=== PATIENT | male | born 1945 | race Caucasian/White ===

== ENCOUNTER 2016-02-23 08:57 | Emergency (ER) | payer BC ==
[2016-02-23 09:10] VITALS: RESP 16
--- NOTE | 2016-02-23 10:06 | DX ---
PA and Lateral Chest February 23, 2016 History: Cough. Comparison: None available. Findings: The lungs are hyperexpanded with an indistinct nodular opacity on the PA view just inferior to the right 3rd rib. There is no pneumothorax or pleural effusion. The heart and pulmonary vasculat ure are normal. Degenerative change is present in the spine with dextroscoliosis of the lower thoraci c spine. Impression: Possible right lung nodule. CT chest is recommended for further evaluation. Findings discussed with Miguel Irene today at 1000 hours.
[2016-02-23] MEDS ORDERED: IOPAMIDOL (ISOVUE 370) 100 ML BTL IV ONE (10:12)
[2016-02-23 10:22] LABS: % IMMATURE GRANULYOCYTES 0.3 % (0.0-1.1); ABSOLUTE IMMATURE GRANULOCYTES 0.02 10^3/uL (0.00-0.10); ADD DIFF? NO; ADD MORPH? NO; ADD SCAN? NO; ATYPICAL LYMPHOCYTE FLAG 30 (0-99); FRAGMENT RBC FLAG 0 (0-99); HEMATOCRIT 46.6 % (40.0-51.0); LEFT SHIFT FLG 0 (0-99); LIPEMIA HEMOLYSIS FLAG 90 (0-99); MEAN CELL HEMOGLOBIN 29.4 pg (27.9-34.1); MEAN CELL HEMOGLOBIN CONCENTR. 34.3 g/dL (32.4-36.7); MEAN CELL VOLUME 85.7 fL (81.5-99.8); MEAN PLATELET VOLUME 10.5 fL (8.7-11.7); PLATELET CLUMPS FLAG 0 (0-99); PLATELET COUNT 245 10^3/uL (150-400); RED BLOOD CELL COUNT 5.44 10^6/uL (4.40-6.38); RED CELL DISTRIBUTION WIDTH 13.9 % (11.5-15.2)
[2016-02-23 10:39] LABS: ANION GAP 11 mEq/L (8-16); CALCIUM 9.3 mg/dL (8.5-10.4); CARBON DIOXIDE 25 mEq/l (22-31); CHLORIDE 103 mEq/L (97-110); CREATININE 0.9 mg/dL (0.7-1.3); GLOMERULAR FILTRATION RATE > 60; GLUCOSE 103 mg/dL (70-100); POTASSIUM 4.4 mEq/L (3.5-5.2); SODIUM 139 mEq/L (134-144)
--- NOTE | 2016-02-23 11:30 | CT ---
CT Pulmonary Angiogram Clinical Indications: Hypoxia and cough. Comparison: chest x-ray February 23, 2016, Chest CT December 12, 2009. Technique: Thinly collimated multidetector helical CT imaging was performed through the chest while 90 mL Isovue-370 were injected intravenously without complication. The images were then transferred to an independent workstation where multiplanar and three-dimensional reconstructions were performed by the interpreting physician and reviewed at multiple windows. Dose reduction techniques were utiliz ed. Findings: Chest: In the right middle lobe is a relatively low dense nodule with Hounsfield units varying betwe en -5 and 20 Hounsfield units. It measures 9 x 15 mm on series 3 image 95 with an adjacent area of at electatic change next to it. I do not see a bronchi heading into this area. Heart size is normal and there is no pericardial effusion. No adenopathy and no pulmonary masses are found. The thyroid gl and remains enlarged and heterogeneous. CT Pulmonary Angiogram: No intraluminal filling defects are seen in the pulmonary arterial system to suggest pulmonary embolus. The thoracic aorta has a normal contour without evidence of aneurysm or dissection. Impression: 1. No pulmonary emboli. 2. Indeterminate 9 x 15 mm nodule with adjacent area of atelectatic or consolidative change. This is slightly unusual as it is relatively low intensity. A small rounded pneumonia, hamartoma, versus necr otic nodule is the differential. The patient has a history of melanoma, but no history of metastasis. Options for further evaluation would be a short interval follow up in 2 months after treating the pa tient for suspected pneumonia versus PET-CT. Critical results discussed by Dr. Barcenas with Dr. Miguel Irene on February 23, 2016 at 11:27 a.m.
[2016-02-23] MEDS ORDERED: AZITHROMYCIN 250 MG TAB PO ONE (11:46)
--- NOTE | 2016-02-23 11:55 | UCPHY ---
H & P Patient Type: Established Chief Complaint Nursing Narrative: C/o SOB with exertion and nonproductive cough x 4 days. Denies fever. Time Seen by Provider: 02/23/16 09:28 HPI/ROS: This patient reports a cough associated with some dyspnea with exertion over the past 4 days. He reports a dry hacking cough and a feeling of bronchial tightness. He was exposed to friend 3 weeks ago on a stray who had a coughing illness and reports also does housemate his currently ill with a cough as well. He notes no exacerbating or alleviating factors for symptoms other than some wheezing with exertion. ROS: Constitutional: No high fevers or chills. No myalgias. HEENT: No significant nasal congestion. No ear pain or other complaints neuro: No focal symptoms pulmonary: No pleuritic pain. No respiratory distress. Cardiovascular : No heart palpitations or lightheadedness. No lower extremity swelling or calf pain. GI: No symptoms integumentary: No diaphoresis. 10 point ROS is otherwise negative. Source: Patient Exam Limitations: No limitations - Personal History Current Tetanus Diphtheria and Acellular Pertussis (TDAP): Yes Tetanus Vaccine Date: within 10 years - Medical/Surgical History PMH: Melanoma to his back with local excision and negative regional lymph nodes. He is followed once a year by Dr. Yesi Ramirez Asthma: No Hx Chronic Respiratory Disease: No Hx Diabetes: No Hx Cardiac Disease: No Hx Renal Disease: No Hx Cirrhosis: No Hx Alcoholism: No Hx HIV/AIDS: No Hx Splenectomy or Spleen Trauma: No Other PMH: hyperlipidemia, ventral hernia surgery, melanoma - Family History Significant Family History: No pertinent family hx - Social History Smoking Status: Never smoked Alcohol Use: Occasionally Drug Use: None Additional Social History: Patient return from [facility] on February 04 - Physical Exam Exam: General Appearance: Alert, no distress. Eyes: Pupils equal and round no pallor or injection. ENT, Mouth: Mucous membranes moist. Respiratory: I appreciate no rales. Has an occasional cough appreciate no significant rhonchi or wheezing on exam. Cardiovascular: Regular rate and rhythm. No murmur gallop or rub. No JVD. No peripheral edema. No calf swelling or tenderness. Gastrointestinal: Abdomen is soft and nontender, no masses, bowel sounds normal. Neurological: Alert with no focal deficits. Skin: Warm and dry, no rashes. Is clean dry intact scar from melanoma excision over the mid thoracic back. Musculoskeletal: Neck is supple nontender. Extremities are symmetrical, full range of motion. Psychiatric: Mood and affect are normal DIFFERENTIAL DIAGNOSIS: After history and physical exam differential diagnosis was considered for pneumonia, bronchitis, pulmonary lesion, PE Constitutional: Initial Vital Signs Temperature (C) 36.9 C 02/23/16 09:08 Heart Rate 92 02/23/16 09:08 Respiratory Rate 16 02/23/16 09:08 Blood Pressure 133/83 H 02/23/16 09:08 O2 Sat (%) 92 02/23/16 09:08 O2 Delivery Mode Room Air Allergies/Adverse Reactions: No Known Allergies Allergy (Verified 02/23/16 09:08) Home Medications: Medication Instructions Recorded Albuterol Hfa Anes Only [Proair 2 puffs IH Q4 PRN #1 mdi 02/23/16 Hfa Icu (*)] Androgel 02/23/16 Azithromycin [Zithromax] 250 mg PO DAILY #6 tab 02/23/16 Lipitor 02/23/16 Medical Decision Making - Diagnostics Imaging: Chest x-ray: Right upper lung field lesion versus infiltrate just inferior to the 5th rib by my interpretation, confirmed by a conversation with our radiologist-Dr. Nails who was read the x-ray CT angio chest: The area is also noted on CT angio chest with adjacent consolidation versus atelectasis. Dr. rincon-radiologist feels that the Hounsfield units of the actual lesion or most consistent with infiltrate or atelectasis but he recommends a follow-up plain chest CT for recheck in 2 months. ED Course/Re-evaluation: I counseled the patient regarding his findings. I also spoke with Dr. Gillespie-pulmonology and with Dr. Key his oncologist. Discussion: Patient with a long abnormality, cough and wheeze that I will treat empirically as a mild bronchopneumonia with albuterol and Zithromax. If his symptoms are not improving he will follow up with a lurer for further evaluation. If he does improve he will follow up with his primary care physician for a CT chest to rule out lesion. - Data Points Laboratory Results: Laboratory Results 02/23/16 10:10 02/23/16 10:10 02/23/16 10:10 WBC 7.40 10^3/uL (3.80-9.50) RBC 5.44 10^6/uL (4.40-6.38) Hgb 16.0 g/dL (13.7-17.5) Hct 46.6 % (40.0-51.0) MCV 85.7 fL (81.5-99.8) MCH 29.4 pg (27.9-34.1) MCHC 34.3 g/dL (32.4-36.7) RDW 13.9 % (11.5-15.2) Plt Count 245 10^3/uL (150-400) MPV 10.5 fL (8.7-11.7) Neut % (Auto) 71.0 % (39.3-74.2) Lymph % (Auto) 17.0 % (15.0-45.0) Floyd % (Auto) 9.3 % (4.5-13.0) Eos % (Auto) 1.9 % (0.6-7.6) Baso % (Auto) 0.5 % (0.3-1.7) Nucleat RBC Rel Count 0.0 % (0.0-0.2) Absolute Neuts (auto) 5.25 10^3/uL (1.70-6.50) Absolute Lymphs (auto) 1.26 10^3/uL (1.00-3.00) Absolute Monos (auto) 0.69 10^3/uL (0.30-0.80) Absolute Eos (auto) 0.14 10^3/uL (0.03-0.40) Absolute Basos (auto) 0.04 10^3/uL (0.02-0.10) Absolute Nucleated RBC 0.00 10^3/uL (0-0.01) Immature Gran % 0.3 % (0.0-1.1) Immature Gran # 0.02 10^3/uL (0.00-0.10) Sodium 139 mEq/L (134-144) Potassium 4.4 mEq/L (3.5-5.2) Chloride 103 mEq/L (97-110) Carbon Dioxide 25 mEq/l (22-31) Anion Gap 11 mEq/L (8-16) BUN 16 mg/dL (7-23) Creatinine 0.9 mg/dL (0.7-1.3) Estimated GFR > 60 Glucose 103 H mg/dL (70-100) Calcium 9.3 mg/dL (8.5-10.4) Medications Given: Discontinued Medications Azithromycin (Zithromax) 500 mg PO EDNOW ONE PRN Reason: Protocol Stop: 02/23/16 11:47 Last Admin: 02/23/16 11:53 Dose: 500 mg Departure - Departure Disposition: Home, Routine, Self-Care Clinical Impression: Cough, Lung abnormality Condition: Good Instructions: Pneumonia (ED) Additional Instructions: Diagnosis: 1. Cough 2. Lung abnormality Discussion: A your imaging studies reveal a right upper lung field lesion that may be a small pneumonia. However this warrants follow-up to ensure that has resolved with treatment. Plan: Albuterol inhaler for cough, wheeze or shortness of breath Zithromax antibiotic If your symptoms are not improving and resolving with treatment plan over the next month, then call Dr. Gillespie-lurer for further evaluation. You should have a repeat imaging study-CT scan of your chest in 2 months. Contact your primary MD to arrange this. May also want to follow up with Dr. Key-your oncologist to see if he wants to do a PET scan or other imaging given your history of localized melanoma. Go to the emergency department for any significant worsening of her symptoms despite the treatment plan. Referrals: Axel Merritt MD [Primary Care Provider] - As per Instructions John Gillespie MD [Medical Doctor] - As per Instructions Prescriptions: Albuterol Hfa Anes Only [Proair Hfa Icu (*)] 2 puffs IH Q4 PRN #1 mdi PRN Reason: Wheezing Azithromycin [Zithromax] 250 mg PO DAILY #6 tab - PQRS PQRS Measurement: 134: Depression screening and followup, PRIME MD-PHQ2 (12 years and older) Over the last 2 weeks, how often have you been bothered by any of the following problems? 1. Feeling down, depressed, or hopeless? 2. Little interest or pleasure in doing things? [Patient answered no to both 1 and 2] [Patient answered yes to at least 1, referred to PCP for further evaluation.] [Not done because] [altered mental status] [patient refused] [critically ill]. 130: Documentation of medications. [Reviewed all patient medications, doses, route and frequency.] [Unable to obtain meds due to] [critical illness] [altered mental status] [ patient did not know]. 226: Do you smoke? [Yes, counseled to stop.] [No.] 47: 65 and older: Advanced care planning. Patient designates surrogate decision maker as [parent] [spouse] [ ]. [Patient refused.] [Patient has advanced directive.] 51: 18 years old and older with diagnosis of COPD, spirometry performance. [Spirometry not performed; equipment not available.] [Patient has no history of COPD] 52: 18 years old and older with COPD and symptoms of COPD or FEV1<60% predicted prescribed a B Agonist. [Spirometry not performed; equipment not available.]
[2016-02-23 11:58] VITALS: BP 107/68; PULSE 76; TEMP 97.9; O2SAT 95
== END 2016-02-23 12:05 | disposition home or self-care (01) ==
LOC: CED 08:57
DX: R05 Cough (principal); R91.8 Other nonspecific abnormal finding of lung field
CPT/HCPCS: 71020-PO; 71275-PO; 80048-PO; 85025-PO; G0463-PO; Q9967

== ENCOUNTER 2016-04-06 18:00 | Emergency (ER) | payer BC ==
--- NOTE | 2016-04-06 18:04 | UCPHY ---
H & P Patient Type: Established HPI/ROS: HPI CHIEF COMPLAINT: Cough, shortness of breath, low oxygen level HISTORY OF PRESENT ILLNESS: This patient very pleasant 71-year-old male, denies having any significant medical history except for melanoma, states that he was recently diagnosed with pneumonia 8 weeks ago and took a course of antibiotics and cleared up. He also had a CT scan at that time that showed most likely pneumonia was due to have a follow-up CT scan tomorrow. He just flew back from [place] as he was running a triathlon there. he tells me for the past 3 days he has had worsening shortness of breath and cough sometimes productive no hemoptysis. He denies chest pain or chest tightness, denies fever chills, however does endorse fatigue. He states he thinks he has pneumonia again. He tells me does not take any daily medications. He just arrived from [facility] an at this evening and drove right here. Patient tells me to not take any daily medications. Past Medical History: Melanoma, 8 weeks ago diagnosed with pneumonia Past Surgical History: Ventral hernia repair, melanoma removed Social History: Denies use of drugs alcohol tobacco products Family History: Noncontributory ROS REVIEW OF SYSTEMS: A comprehensive 10 point review of systems is otherwise negative aside from elements mentioned in the history of present illness. Exam Constitutional appears well nontoxic triage nursing summary reviewed, vital signs reviewed, awake/alert. ( hypoxia 85%) Eyes normal conjunctivae and sclera, EOMI, PERRLA. HENT normal inspection, atraumatic, moist mucus membranes, no epistaxis, neck supple/ no meningismus, no raccoon eyes. Respiratory clear to auscultation bilaterally, normal breath sounds, no respiratory distress, no wheezing. Cardiovascular rate normal, regular rhythm, no murmur, no edema, distal pulses normal. Gastrointestinal soft, non-tender, no rebound, no guarding, normal bowel sounds, no distension, no pulsatile mass. Genitourinary no CVA tenderness. Musculoskeletal no midline vertebral tenderness, full range of motion, no calf swelling, no tenderness of extremities, no meningismus, good pulses, neurovascularly intact. Skin pink, warm, & dry, no rash, skin atraumatic. Neurologic awake, alert and oriented x 3, AAOx3, moves all 4 extremities equally, motor intact, sensory intact, CN II-XII intact, normal cerebellar, normal vision, normal speech. Psychiatric normal mood/affect. Heme/Lymph/Immune no lymphadenopathy. Differential Diagnosis:includes but is not limited to in a particular, pneumonia , pneumothorax, pulmonary embolism, CHF, ACS Medical Decision Making: This patient had an IV established obtain blood work, patient placed on full environmental monitoring specialist with pulse ox, patient received a DuoNeb breathing treatment it is noted his lungs are clear on exam, he has been flying he does have risk factor for pulmonary embolism. Will evaluate for pneumonia versus PE. Does have an oxygen saturation of 85% on room air upon arrival. Re-evaluation: 1822: I did review this patient's last urgent care visit with his x-ray CT scan with this right upper lung nodule versus pneumonia versus atelectasis. Placed on azithromycin. Due for follow-up CT scan in 2 months which is according to the patient scheduled for tomorrow. EKG interpretation by me on record in [employer] system. Impression time of EKG 1830, this is sinus rhythm rate of 78, no acute ischemic changes appreciated. Specifically no ST elevation, ST depression T-wave abnormalities. Intervals are appropriate. CT scan of the angiogram chest with IV contrast The results of the study are stable pulmonary nodule, no evidence of pulmonary embolism, significant peribronchial thickening and ground-glass haziness,. The study was read by Dr. Cummings. I viewed the images myself on the PACS system. 1931: Patient is resting comfortably no complaints. Blood work has been reviewed negative troponin, nonischemic EKG, negative D-dimer, chest x-ray two view shows a larger pulmonary nodule seen in the right upper lobe. This is bigger than previous x-ray. Spoke with Alfonso Cummings Radiology recommends another CT angiogram chest. Patient is due for CT angiogram chest tomorrow will perform it tonight due to being in the urgent care with hypoxia and shortness of breath. Differential includes round pneumonia, pulmonary embolism, metastatic disease melanoma, pulmonary calcification 1951: of note this patient was taken off oxygen to see what his room air saturation was in a descended down to 82%. He is placed back on 3 L nasal cannula satting 93% at this time. CT angiogram is pending at this time. 2107: re-examination at this time this patient received DuoNeb breathing treatment he has been off oxygen now for 10 minutes. He is on room air satting 94% maintaining this. No respiratory distress. He would like to go home and I feel that as he is maintaining appropriate oxygen saturation of allowed to go home. Will be given a prescription for albuterol, guaifenesin, azithromycin, prednisone. If at any time he develops shortness of breath worsening symptoms he needs return to the urgent care or emergency room. I went over his CT scan result pretty result he should take this to his primary care doctor go over this with him. Should also cancel his CT scan tomorrow given that he had a tonight. Understands return if he has any worsening symptoms questions or concerns. Source: Patient - Personal History Tetanus Vaccine Date: within 10 years - Medical/Surgical History Hx Asthma: No Hx Chronic Respiratory Disease: No Hx Diabetes: No Hx Cardiac Disease: No Hx Renal Disease: No Hx Cirrhosis: No Hx Alcoholism: No Hx HIV/AIDS: No Hx Splenectomy or Spleen Trauma: No Other PMH: hyperlipidemia, ventral hernia surgery, melanoma - Family History Significant Family History: No pertinent family hx - Social History Smoking Status: Never smoked Constitutional: Initial Vital Signs Temperature (C) 36.7 C 04/06/16 18:05 Heart Rate 86 04/06/16 18:05 Respiratory Rate 20 04/06/16 18:05 Blood Pressure 119/67 04/06/16 18:05 O2 Sat (%) 85 L 04/06/16 18:05 O2 Delivery Mode Nasal Cannula O2 (L/minute) 3 Allergies/Adverse Reactions: No Known Allergies Allergy (Verified 04/06/16 18:04) Home Medications: Medication Instructions Recorded Androgel 02/23/16 Lipitor 02/23/16 AZITHROMYCIN [Z-PACK] 250 mg PO DAILY #6 tab 04/06/16 Albuterol [Proventil Inhaler HFA 1 - 2 puffs IH Q4H #1 mdi 04/06/16 (*)] Guaifenesin [Guaifenesin ER] 600 mg PO BID #14 tab.er.12h 04/06/16 predniSONE 60 mg PO DAILY #15 tab 04/06/16 Medical Decision Making - Data Points Laboratory Results: Laboratory Results 04/06/16 18:30 04/06/16 18:30 04/06/16 04/06/16 04/06/16 18:55 18:30 18:30 WBC 3.96 10^3/uL 10^3/uL (3.80-9.50) RBC 4.88 10^6/uL 10^6/uL (4.40-6.38) Hgb 14.4 g/dL g/dL (13.7-17.5) Hct 42.5 % % (40.0-51.0) MCV 87.1 fL fL (81.5-99.8) MCH 29.5 pg pg (27.9-34.1) MCHC 33.9 g/dL g/dL (32.4-36.7) RDW 14.6 % % (11.5-15.2) Plt Count 175 10^3/uL 10^3/uL (150-400) MPV 10.4 fL fL (8.7-11.7) Neut % (Auto) 69.9 % % (39.3-74.2) Lymph % (Auto) 16.2 % % (15.0-45.0) [place] % (Auto) 13.1 % H % (4.5-13.0) Eos % (Auto) 0.0 % L % (0.6-7.6) Baso % (Auto) 0.5 % % (0.3-1.7) Nucleat RBC Rel Count 0.0 % % (0.0-0.2) Absolute Neuts (auto) 2.77 10^3/uL 10^3/uL (1.70-6.50) Absolute Lymphs (auto) 0.64 10^3/uL L 10^3/uL (1.00-3.00) Absolute Monos (auto) 0.52 10^3/uL 10^3/uL (0.30-0.80) Absolute Eos (auto) 0.00 10^3/uL L 10^3/uL (0.03-0.40) Absolute Basos (auto) 0.02 10^3/uL 10^3/uL (0.02-0.10) Absolute Nucleated RBC 0.00 10^3/uL 10^3/uL (0-0.01) Immature Gran % 0.3 % % (0.0-1.1) Immature Gran # 0.01 10^3/uL 10^3/uL (0.00-0.10) D-Dimer VBG Lactic Acid 0.7 mmol/L mmol/L (0.7-2.1) Sodium 136 mEq/L mEq/L (134-144) Potassium 3.8 mEq/L mEq/L (3.5-5.2) Chloride 98 mEq/L mEq/L (97-110) Carbon Dioxide 23 mEq/l mEq/l (22-31) Anion Gap 15 mEq/L mEq/L (8-16) BUN 18 mg/dL mg/dL (7-23) Creatinine 1.1 mg/dL mg/dL (0.7-1.3) Estimated GFR > 60 Glucose 101 mg/dL H mg/dL (70-100) Calcium 8.4 mg/dL L mg/dL (8.5-10.4) Magnesium 1.9 mg/dL mg/dL (1.6-2.3) Total Bilirubin 0.6 mg/dL mg/dL (0.1-1.4) Conjugated Bilirubin 0.3 mg/dL mg/dL (0.0-0.5) Unconjugated Bilirubin 0.3 mg/dL mg/dL (0.0-1.1) AST 42 IU/L IU/L (17-59) ALT 45 IU/L IU/L (21-72) Alkaline Phosphatase 65 IU/L IU/L (38-126) Troponin I < 0.012 ng/mL ng/mL (0-0.034) NT-Pro-B Natriuret Pep 153 pg/mL H pg/mL (0-125) Total Protein 6.3 g/dL g/dL (6.3-8.2) Albumin 3.6 g/dL g/dL (3.5-5.0) Lipase 148.0 IU/L IU/L (23-300) 04/06/16 18:27 WBC RBC Hgb Hct MCV MCH MCHC RDW Plt Count MPV Neut % (Auto) Lymph % (Auto) [place] % (Auto) Eos % (Auto) Baso % (Auto) Nucleat RBC Rel Count Absolute Neuts (auto) Absolute Lymphs (auto) Absolute Monos (auto) Absolute Eos (auto) Absolute Basos (auto) Absolute Nucleated RBC Immature Gran % Immature Gran # D-Dimer 0.42 ug/mLFEU ug/mLFEU (0.00-0.50) VBG Lactic Acid Sodium Potassium Chloride Carbon Dioxide Anion Gap BUN Creatinine Estimated GFR Glucose Calcium Magnesium Total Bilirubin Conjugated Bilirubin Unconjugated Bilirubin AST ALT Alkaline Phosphatase Troponin I NT-Pro-B Natriuret Pep Total Protein Albumin Lipase Medications Given: Discontinued Medications Albuterol/Ipratropium (Duoneb) 3 ml IH EDNOW ONE Stop: 04/06/16 18:20 Last Admin: 04/06/16 19:14 Dose: 3 ml Albuterol/Ipratropium (Duoneb) 3 ml IH EDNOW ONE Stop: 04/06/16 20:41 Last Admin: 04/06/16 20:49 Dose: 3 ml Sodium Chloride (Ns) 1,000 mls @ 0 mls/hr IV ONCE ONE PRN Reason: Wide Open Stop: 04/06/16 18:14 Last Admin: 04/06/16 19:14 Dose: 1,000 mls Methylprednisolone Sodium Succinate (Solu-Medrol) 125 mg IVP EDNOW ONE Stop: 04/06/16 20:31 Last Admin: 04/06/16 20:49 Dose: 125 mg Departure - Departure Disposition: Home, Routine, Self-Care Clinical Impression: Bronchitis Condition: Fair Instructions: Acute Bronchitis (ED) Additional Instructions: 1. Drink lots of fluids stay well-hydrated 2. take albuterol every 2-4 hours as needed for wheezing and shortness of breath 3. take her prednisone as prescribed 4.Please follow up with her primary care doctor about her CT results 5. Return to the emergency room urgent care if you have any worsening symptoms questions or concerns includes worsening shortness of breath, fever, vomiting. Referrals: NONE *PRIMARY CARE P,. [Primary Care Provider] - As per Instructions Prescriptions: Albuterol [Proventil Inhaler HFA (*)] 1 - 2 puffs IH Q4H #1 mdi AZITHROMYCIN [Z-PACK] 250 mg PO DAILY #6 tab Guaifenesin [Guaifenesin ER] 600 mg PO BID #14 tab.er.12h predniSONE 60 mg PO DAILY #15 tab - PQRS PQRS Measurement: 134: Depression screening and followup, PRIME MD-PHQ2 (12 years and older) Over the last 2 weeks, how often have you been bothered by any of the following problems? 1. Feeling down, depressed, or hopeless? 2. Little interest or pleasure in doing things? NO 130: Documentation of medications. Reviewed all patient medications, doses, route and frequency. 226: Do you smoke? No. 47: 65 and older: Advanced care planning. Patient designates surrogate decision maker as refused 51: 18 years old and older with diagnosis of COPD, spirometry performance. Patient has no history of COPD 52: 18 years old and older with COPD and symptoms of COPD or FEV1<60% predicted prescribed a B Agonist. Spirometry not performed; equipment not available.
[2016-04-06 18:07] VITALS: RESP 20; TEMP 98.1
[2016-04-06] MEDS ORDERED: NS 1,000 ML IV ONE (18:13)
[2016-04-06] MEDS ORDERED: IPRATROPIUM/ALBUTEROL 3 ML DEYVIAL IH ONE ×2 (18:19→20:40)
--- NOTE | 2016-04-06 18:33 | CPEKG ---
Heart Rate: 78 RR Interval: 769 P-R Interval: 152 QRSD Interval: 74 QT Interval: 380 QTC Interval: 433 P Mesa: 19 QRS Mesa: 41 T Wave Mesa: 39 EKG Severity - NORMAL ECG - EKG Impression: SINUS RHYTHM Electronically Signed By: Festus Ruffin 08-Apr-2016 09:06:18
[2016-04-06 18:38] LABS: % IMMATURE GRANULYOCYTES 0.3 % (0.0-1.1); ABSOLUTE IMMATURE GRANULOCYTES 0.01 10^3/uL (0.00-0.10); ADD DIFF? NO; ADD MORPH? NO; ADD SCAN? NO; ATYPICAL LYMPHOCYTE FLAG 30 (0-99); FRAGMENT RBC FLAG 0 (0-99); HEMATOCRIT 42.5 % (40.0-51.0); HEMOGLOBIN 14.4 g/dL (13.7-17.5); LEFT SHIFT FLG 0 (0-99); LIPEMIA HEMOLYSIS FLAG 90 (0-99); MEAN CELL HEMOGLOBIN 29.5 pg (27.9-34.1); MEAN CELL HEMOGLOBIN CONCENTR. 33.9 g/dL (32.4-36.7); MEAN CELL VOLUME 87.1 fL (81.5-99.8); MEAN PLATELET VOLUME 10.4 fL (8.7-11.7); PLATELET CLUMPS FLAG 0 (0-99); PLATELET COUNT 175 10^3/uL (150-400); RED BLOOD CELL COUNT 4.88 10^6/uL (4.40-6.38); RED CELL DISTRIBUTION WIDTH 14.6 % (11.5-15.2)
[2016-04-06 18:56] LABS: ALANINE AMINOTRANSFERASE 45 IU/L (21-72); ALBUMIN 3.6 g/dL (3.5-5.0); ALKALINE PHOSPHATASE 65 IU/L (38-126); ANION GAP 15 mEq/L (8-16); ASPARTATE AMINOTRANSFERASE 42 IU/L (17-59); BILIRUBIN,TOTAL 0.6 mg/dL (0.1-1.4); BILIRUBIN-CONJUGATED 0.3 mg/dL (0.0-0.5); BILIRUBIN-UNCONJUGATED 0.3 mg/dL (0.0-1.1); CALCIUM 8.4 mg/dL (8.5-10.4); CARBON DIOXIDE 23 mEq/l (22-31); CHLORIDE 98 mEq/L (97-110); CREATININE 1.1 mg/dL (0.7-1.3); GLOMERULAR FILTRATION RATE > 60; GLUCOSE 101 mg/dL (70-100); MAGNESIUM 1.9 mg/dL (1.6-2.3); POTASSIUM 3.8 mEq/L (3.5-5.2); SODIUM 136 mEq/L (134-144); TOTAL PROTEIN 6.3 g/dL (6.3-8.2)
[2016-04-06 19:00] LABS: TROPONIN I < 0.012 ng/mL (0-0.034)
[2016-04-06] MEDS ORDERED: IOPAMIDOL (ISOVUE-370) 150 ML BTL IV ONE (19:03)
[2016-04-06] MEDS ORDERED: methylPREDNISolone SOD SUCC 125 MG/2 ML VIAL IVP ONE (20:30)
[2016-04-06] MEDS ORDERED: IPRATROPIUM/ALBUTEROL 3 ML DEYVIAL ONE (20:40)
[2016-04-06 21:43] VITALS: BP 115/65; PULSE 72; O2SAT 91
== END 2016-04-06 21:30 | disposition home or self-care (01) ==
LOC: CED 18:00
DX: J40 Bronchitis, not specified as acute or chronic (principal); R91.1 Solitary pulmonary nodule; E78.5 Hyperlipidemia, unspecified; Z85.89 Personal history of malignant neoplasm of other organs and systems
CPT/HCPCS: 71020-PO; 71275-PO; 80048-PO; 80076-PO; 83605-PO; 83690-PO; 83735-PO; 83880-PO; 84484-PO; 85025-PO; 85378-PO; 93010-PO; 96361-PO; 96374-PO; 99215-PO; G0463-PO; Q9967

== ENCOUNTER 2016-06-08 10:13 | Inpatient (IN) | payer BC ==
[~2016-06-08 10:13] MED LIST: ceFAZolin 2 GM/DEXTROSE 100 ML IV ONE
[2016-06-08] MEDS ORDERED: LIDOCAINE 1% 2 ML INJ ONE (10:22)
[2016-06-08] MEDS ORDERED: CEFAZOLIN 2 GM/DEXTROSE/100 ML BAG IV ONE (10:22)
[2016-06-08] MEDS ORDERED: LIDOCAINE 1% 5 ML SDV ID PRN (10:59)
[2016-06-08] MEDS ORDERED: LR 1,000 ML IV ONE (10:59)
[2016-06-08] MEDS ORDERED: SUGAMMADEX SODIUM 200 MG/2 ML VIAL IVP ONE (12:21)
[2016-06-08] MEDS ORDERED: fentaNYL 250 MCG/5 ML INJ ONE (12:21)
[2016-06-08] MEDS ORDERED: PROPOFOL 200 MG/20 ML VIAL ONE (12:21)
[2016-06-08] MEDS ORDERED: LIDOCAINE 2% 100 MG/5 ML SYR ONE (12:21)
[2016-06-08] MEDS ORDERED: DEXAMETHASONE 4 MG/ML VIAL ONE (12:21)
[2016-06-08] MEDS ORDERED: ONDANSETRON 4 MG/2 ML VIAL ONE (12:21)
[2016-06-08] MEDS ORDERED: ROCURONIUM 50 MG/5 ML VIAL ONE ×2 (12:21→15:26)
[2016-06-08] MEDS ORDERED: BUPIVACAINE/EPI 0.5% 30 ML SDV ONE (12:47)
[2016-06-08] MEDS ORDERED: BUPIVACAINE 0.5% 30 ML SDV ONE (12:48)
[2016-06-08] MEDS ORDERED: THROMBIN(HUM PLAS)/FIBRINOG/CA 5 ML VIAL TP ONE (12:49)
[2016-06-08] MEDS ORDERED: MIDAZOLAM 2 MG/2 ML VIAL ONE (13:35)
[2016-06-08] MEDS ORDERED: PHENYLEPHRINE HCL 100 MCG/ML SYR ONE (14:12)
[2016-06-08] MEDS ORDERED: NALOXONE HCL 0.4 MG/ML INJ IVP PRN (14:57)
[2016-06-08] MEDS ORDERED: NARCOTIC DRIP BAG-TOTAL ALL TYPES EP PRN (14:57)
[2016-06-08] MEDS ORDERED: ONDANSETRON 4 MG/2 ML VIAL IVP PRN ×2 (15:10→16:20)
[2016-06-08] MEDS ORDERED: diphenhydrAMINE 25 MG CAP PO PRN (15:10)
--- NOTE | 2016-06-08 16:27 | POSTOPPROG ---
Post Op Note Date of Operation: 06/08/16 Surgeon: Jairon Sanchez Motor Racer: Diana Pandya Anesthesiologist: Christiano Forman Anesthesia: GET(General Endotracheal) Pre-op Diagnosis: RUL lung mass, hx of melanoma Post-op Diagnosis: same, and multiple subcentimeter RLL nodules Procedure: R VATS, R minithoracotomy, RULx1 and RLLx2 wedge biopsies Inf/Abcess present in the surg proc area at time of surgery?: No EBL: Minimal Complications: none Drains: Other (chest tube) Specimen(s): RUL mass frozen section c/w poorly differentiated metastatic malignancy, possible melanoma. Final pending. 1. rul wedge 2. rll wedge #1 3. rll wedge #2
[2016-06-08] MEDS: NS 1,000 ML IV SCH (18:51)
[2016-06-09] MEDS: NS 1,000 ML IV SCH ×3 (02:55→20:33)
--- NOTE | 2016-06-09 04:21 | GOP ---
[f rep st] OPERATIVE REPORT DATE OF OPERATION: 06/08/2016 SURGEON: Jairon Sanchez MD RN DIGESTIVE: Diana Pandya PA-C. ANESTHESIOLOGIST: Dr. Forman. PREOPERATIVE DIAGNOSIS: Right upper lobe lesion. POSTOPERATIVE DIAGNOSIS: Probable metastatic melanoma with multiple nodules in the right lung. PROCEDURE PERFORMED: 1. VATS right upper lung nodule wedge resection. 2. Two separate small wedge biopsies of the right lower lobe. FINDINGS: Patient was found to have a 2 cm nodule in the upper lobe consistent with poorly differen tiated cancer consistent with melanoma and 3 smaller, tiny, nodules in the right lower lobe which we re also malignant. Final path is pending. There was no evidence of any pleural mets or significant adenopathy. DESCRIPTION OF PROCEDURE: Patient taken to the operating room, where he received satisfactory gener al endotracheal anesthesia by Dr. Forman. He was placed in a left lateral decubitus position, pre pped and draped in the usual sterile fashion. A short incision was made in the 6th intercostal spac e. A trocar was introduced. Thoracoscope introduced. Adequate visualization was obtained. Two ot her trocars were placed in the upper chest under direct vision. The right upper lobe was palpated a nd examined, but could not definitely identify the nodule. A short, 3-inch, intercostal incision wa s made in the 5th intercostal space and the upper lobe was palpated, and the nodule was identified. It was then wedged out with the CARMEN staplers. That was sent to Pathology. On palpating the lower lobe, some small nodules were identified and very small wedges were taken of these 5 mm an 8 mm nodu les. They, too, were sent to Pathology. Hemostasis was assured. The wound was closed with two #1 Vicryl pericostal sutures, a running 0 Vicryl suture for the muscular layers, 2-0 Vicryl for the sub cu, 4-0 Monocryl subcuticular stitch for the skin. All layers had been infiltrated with Marcaine. Prior to this, a #28 chest tube was brought in through one of the trocar sites and placed in the ape x of the lung, secured to the skin with a 3-0 nylon suture, and connected to a Pleur-Evac drainage s ystem. He tolerated the procedure quite well. There were no complications. /[id number]/MODL
[2016-06-09 05:16] LABS: HEMATOCRIT 42.2 % (40.0-51.0); HEMOGLOBIN 14.4 g/dL (13.7-17.5)
--- NOTE | 2016-06-09 08:57 | SOAPPROG ---
SOAP Progress Note Assessment/Plan: Assessment/Plan: 71 Y M s/p VATS, minithoracotomy, wedge biopsies x 3. POD#1. Epidural working well--no pain. No air leak (poor cough effort). Pathology pending. Early results c/w metastatic disease, possibly melanoma. Can likely d/c chest tubes tomorrow. Epidural per anesthesia. Would probably continue at least thru today. Regular diet. Dispo: pending. O: alert, nad mmm ctab, no air leak, drainage serosanguinous rrr abd soft 06/09/16 08:54 Objective: Vital Signs Temp Pulse Resp BP Pulse Ox 36.8 C 76 14 114/59 L 95 06/09/16 08:00 06/09/16 08:00 06/09/16 08:00 06/09/16 08:00 06/09/16 08:00 Laboratory Results 06/09/16 04:25 06/08/16 06/09/16 06/10/16 05:59 05:59 05:59 Intake Total 3800 Output Total 3965 108 Balance 1814 -950 ICD10 Worksheet Patient Problems: Problems Problem Status Onset S/P thoracotomy Acute - ICD10 Problem Qualifiers (1) S/P thoracotomy
[2016-06-09] MEDS: DC NARCS MISC SCH (09:46)
[2016-06-09] MEDS: REGARDING ANTICOAG MISC SCH (09:50)
--- NOTE | 2016-06-09 12:38 | SOAPPROG ---
SOAP Progress Note Assessment/Plan: Assessment:71 yo male s/p thoracotomy with thoracic epidural for post op pain. Pain well controlled. Some breakthrough pain with coughing. Plan:Continue epidural at 3cc/hr. Instructed on use of PCEA for dosing before expected activity to minimize breakthrough pain. 06/09/16 12:34 Subjective: Pain well controlled. Denies numbness/tingling/paresthesias/weakness/SETH. Pain with coughing. Objective: Awake, alert. Neuro grossly intact. No weakness in bilateral U or LE. Epidural site clean dry intact Vital Signs Temp Pulse Resp BP Pulse Ox 36.7 C 78 14 124/54 H 94 06/09/16 12:00 06/09/16 12:00 06/09/16 12:00 06/09/16 12:00 06/09/16 12:00 Laboratory Results 06/09/16 04:25 06/08/16 06/09/16 06/10/16 05:59 05:59 05:59 Intake Total 3800 Output Total 5269 700 Balance 1814 -950 - Time Spent With Patient Time Spent With Patient: 10 min ICD10 Worksheet Patient Problems: Problems Problem Status Onset S/P thoracotomy Acute
[2016-06-09] MEDS: fentaNYL 4MCG/ML/BUP 0.1% in 100ML NS EP SCH (18:47)
[2016-06-10] MEDS: REGARDING ANTICOAG MISC SCH (08:40)
[2016-06-10] MEDS: DC NARCS MISC SCH (08:40)
--- NOTE | 2016-06-10 10:38 | SOAPPROG ---
SOAP Progress Note Assessment/Plan: Assessment:71 yo male s/p thoracotomy with thoracic epidural for post op pain. Pain well controlled. Some breakthrough pain with coughing. Plan:Continue epidural at 3cc/hr. Instructed on use of PCEA for dosing before expected activity, incentive spirometry to minimize breakthrough pain. 06/10/16 10:34 Subjective: Pain reasonably controlled, pt feels like analgesia is optimized and can tolerate some pain with coughing, does not want epidural rate increase. Used PCEA function only once. Denies numbness tingling paresthesias SETH weakness. Objective: awake alert, on O2 mask. Neuro grossly intact. No decrease in strength or sensation in bilateral upper and lower extremities. Epidural site clean dry intact Vital Signs Temp Pulse Resp BP Pulse Ox 36.8 C 82 14 120/61 92 06/10/16 10:00 06/10/16 10:00 06/10/16 10:00 06/10/16 10:00 06/10/16 10:00 Laboratory Results 06/09/16 04:25 06/09/16 06/10/16 06/11/16 05:59 05:59 05:59 Intake Total 3800 5150 Output Total 1986 4135 Balance 1814 1015 - Time Spent With Patient Time Spent With Patient: 10 min ICD10 Worksheet Patient Problems: Problems Problem Status Onset S/P thoracotomy Acute
--- NOTE | 2016-06-10 11:14 | SOAPPROG ---
SOAP Progress Note Assessment/Plan: Assessment: afebrile bs equal and cxr well expanded no airleak and moderate drainage path pending Plan:cxr in am 06/10/16 11:1 Objective: Vital Signs Temp Pulse Resp BP Pulse Ox 36.8 C 82 14 120/61 92 06/10/16 10:00 06/10/16 10:00 06/10/16 10:00 06/10/16 10:00 06/10/16 10:00 Laboratory Results 06/09/16 04:25 06/09/16 06/10/16 06/11/16 05:59 05:59 05:59 Intake Total 3800 5150 Output Total 1986 4135 Balance 1814 1015 ICD10 Worksheet Patient Problems: Problems Problem Status Onset S/P thoracotomy Acute
--- NOTE | 2016-06-10 20:37 | SOAPPROG ---
SOAP Progress Note Assessment/Plan: Assessment: afebrile bs equal and cxr well expanded no airleak and moderate drainage path pending Plan:cxr in am 06/10/16 11:1 06/10/16 20:36 VERY STABLE AND COMFORTABLE WITH THE EPIDURAL / NO AIR LEAK / MODERATE SEROUS DRAINAGE / PATH PENDING HOPEFULLY HOME THIS WEEKEND Objective: Vital Signs Temp Pulse Resp BP Pulse Ox 36.8 C 90 12 118/55 L 91 L 06/10/16 19:52 06/10/16 19:52 06/10/16 19:52 06/10/16 19:52 06/10/16 19:52 Laboratory Results 06/09/16 04:25 06/09/16 06/10/16 06/11/16 05:59 05:59 05:59 Intake Total 3800 5150 Output Total 1985 9640 6967 Balance 1814 1015 -2300 ICD10 Worksheet Patient Problems: Problems Problem Status Onset S/P thoracotomy Acute
[2016-06-10] MEDS: fentaNYL 4MCG/ML/BUP 0.1% in 100ML NS EP SCH (21:32)
[2016-06-11] MEDS: NS 1,000 ML IV SCH ×2 (02:24→23:55)
[2016-06-11] MEDS: DC NARCS MISC SCH (07:38)
[2016-06-11] MEDS: REGARDING ANTICOAG MISC SCH (07:39)
[2016-06-11] MEDS ORDERED: OXYCODONE/APAP 5/325 TAB PO ONE (13:26)
[2016-06-11] MEDS ORDERED: HYDROmorphONE/DILAUDID 1 MG/ML SYR IVP PRN (13:50)
[2016-06-11] MEDS: KETOROLAC 15 MG/1 ML SDV IVP SCH ×2 (18:30→23:53)
--- NOTE | 2016-06-11 21:37 | SOAPPROG ---
SOAP Progress Note Assessment/Plan: Assessment: afebrile bs equal and cxr well expanded no airleak and moderate drainage path pending Plan:cxr in am 06/10/16 11:1 06/10/16 20:36 VERY STABLE AND COMFORTABLE WITH THE EPIDURAL / NO AIR LEAK / MODERATE SEROUS DRAINAGE / PATH PENDING HOPEFULLY HOME THIS 06/11/16 21:36 doing well and comfortable of the epidural / no air leak and minimal drainage / hopefully home in the a.m. Path reveals metastatic melanoma in both lobes and the patient and were informed of this Objective: Vital Signs Temp Pulse Resp BP Pulse Ox 36.9 C 75 18 113/63 92 06/11/16 19:24 06/11/16 19:24 06/11/16 19:24 06/11/16 19:24 06/11/16 19:24 Laboratory Results 06/09/16 04:25 06/10/16 06/11/16 06/12/16 05:59 05:59 05:59 Intake Total 5150 1994 1450 Output Total 8025 3750 1600 Balance 1015 -1756 -150 ICD10 Worksheet Patient Problems: Problems Problem Status Onset S/P thoracotomy Acute
[2016-06-11] MEDS: OXYCODONE/APAP 5/325 TAB PO PRN (23:54)
[2016-06-12] MEDS: KETOROLAC 15 MG/1 ML SDV IVP SCH ×4 (05:31→23:52)
[2016-06-12] MEDS: ENOXAPARIN 40 MG/0.4 ML SYR SC SCH (09:56)
--- NOTE | 2016-06-12 13:00 | SOAPPROG ---
SOAP Progress Note Assessment/Plan: Assessment: 71yo M s/p VATS, minithoracotomy, wedge biopsies x 3. Pathology shows metastatic melanoma Pain controlled c PO pain meds Ambulation and IS Regular diet CXR this am shows stable apical ptx, no new consolidations Water seal - CXR in 4 hours. If ok, will pull chest tube in morning Dispo: hopefully home tomorrow if no pneumo after chest tube removal S: doing well. ambulating. pain controlled. no new complaints. O: sitting upright in chair, comfortable, at bedside Clear to auscultation bilaterally, no increased work of breathing Chest tube with serosanguineous fluid. No evidence of air leak Regular rate and rhythm Dressings intact Objective: Vital Signs Temp Pulse Resp BP Pulse Ox 36.5 C 69 18 131/66 H 92 06/12/16 08:00 06/12/16 08:00 06/12/16 08:00 06/12/16 08:00 06/12/16 08:00 Laboratory Results 06/09/16 04:25 06/11/16 06/12/16 06/13/16 05:59 05:59 05:59 Intake Total 1993 1924 Output Total 9727 8601 Balance -8383 -3730 ICD10 Worksheet Patient Problems: Problems Problem Status Onset S/P thoracotomy Acute
[2016-06-12] MEDS: OXYCODONE/APAP 5/325 TAB PO PRN ×2 (14:04→21:27)
[2016-06-13] MEDS: OXYCODONE/APAP 5/325 TAB PO PRN ×2 (04:18→10:15)
[2016-06-13] MEDS: KETOROLAC 15 MG/1 ML SDV IVP SCH ×2 (05:53→13:19)
[2016-06-13 09:04] VITALS: BP 126/60; PULSE 68; RESP 18; TEMP 97.8; O2SAT 95
[2016-06-13] MEDS: ENOXAPARIN 40 MG/0.4 ML SYR SC SCH (10:57)
--- NOTE | 2016-06-13 11:13 | SOAPPROG ---
SOAP Progress Note Assessment/Plan: Assessment: 71yo M s/p VATS, minithoracotomy, wedge biopsies x 3. Pathology shows metastatic melanoma Pain controlled c PO pain meds Ambulation and IS Regular diet Chest tube removed. F/u CXR in 4 hours. If no pneumo, may d/c home Dispo: hopefully home this afternoon after CXR. F/u 7-10d with CXR prior to appointment S: doing well. ambulating. pain controlled. no new complaints. O: sitting upright in chair, comfortable, at bedside Clear to auscultation bilaterally, no increased work of breathing Chest tube removed without difficulty. Incisions CDI Regular rate and rhythm Objective: Vital Signs Temp Pulse Resp BP Pulse Ox 36.6 C 68 18 126/60 H 95 06/13/16 08:00 06/13/16 08:00 06/13/16 08:00 06/13/16 08:00 06/13/16 08:00 Laboratory Results 06/09/16 04:25 06/12/16 06/13/16 06/14/16 05:59 05:59 05:59 Intake Total 1925 Output Total 3160 20 900 Balance -1235 -20 -900 ICD10 Worksheet Patient Problems: Problems Problem Status Onset S/P thoracotomy Acute
== END 2016-06-13 15:40 | disposition home or self-care (01) | DRG 168 ==
LOC: F3E 10:13
PROVIDERS: ADMIT Surgery; ATTEND Surgery
PROC: 0BBC4ZX Excision of Right Upper Lung Lobe, Percutaneous Endoscopic Approach, Diagnostic (ICD-10-PCS; principal; 2016-06-08 12:00)
PROC: 0BBF4ZX Excision of Right Lower Lung Lobe, Percutaneous Endoscopic Approach, Diagnostic (ICD-10-PCS; principal; 2016-06-08 12:00)
DX: C78.01 Secondary malignant neoplasm of right lung (principal); E78.00 Pure hypercholesterolemia, unspecified; Z85.820 Personal history of malignant melanoma of skin
CPT/HCPCS: J0690; J1100; J1650; J1885; J2001; J2250; J2370; J2405; J2704; J3010

== ENCOUNTER → 2016-06-21 | Outpatient (CLI) | payer BC ==
[~2016-06-21] MED LIST changes: +GADOBUTROL 10 ML VIAL IVP ONE; -ceFAZolin 2 GM/DEXTROSE 100 ML IV ONE
== END ==
LOC: FIMAGING 14:26
PROVIDERS: ATTEND Internal Medicine Hematology & Oncology
DX: C43.59 Malignant melanoma of other part of trunk (principal)
CPT/HCPCS: A9585

== ENCOUNTER → 2016-06-25 | Outpatient (CLI) | payer BC | LOC: FIMAGING 14:21 | PROVIDERS: ATTEND Physician Assistant Surgical | DX: Z90.2 Acquired absence of lung [part of] (principal); C78.00 Secondary malignant neoplasm of unspecified lung ==

== ENCOUNTER → 2017-02-17 | Outpatient (CLI) | payer OTHER | LOC: FIMAGING 14:54 | PROVIDERS: ATTEND Internal Medicine Hematology & Oncology | DX: C43.59 Malignant melanoma of other part of trunk (principal); C78.01 Secondary malignant neoplasm of right lung | CPT/HCPCS: A9585 ==

== ENCOUNTER → 2017-06-03 | Day surgery (SDC) | payer BC ==
[~2017-06-03] MED LIST changes: +ALTEPLASE 2 MG VIAL IVP PRN; +FLUMAZENIL 0.5 MG/5 ML MDV IVP PRN; -GADOBUTROL 10 ML VIAL IVP ONE; +GLUCAGON HCL 1 MG VIAL IVP PRN; +HEPARIN 10,000 UNIT/10 ML MDV (1,000 UNIT/ML) IVP PRN; +MEPERIDINE 25 MG/ML SYR IVP PRN; +MIDAZOLAM 2 MG/2 ML VIAL IVP PRN; +NALOXONE HCL 0.4 MG/ML INJ IVP PRN; +NS 1,000 ML IV SCH; +PROTAMINE SULFATE 50 MG/5 ML VIAL IVP PRN; +fentaNYL 100 MCG/2 ML INJ IVP PRN
--- NOTE | 2017-06-03 08:31 | PDGENHP ---
History & Physical Chief Complaint: MELANOMA History of Present Illness: MULTIPLE SMALL RLE NODULES. Pertinent Past, Social, Family History: EXCISIONAL BIOPSY AND LYMPH NODE, WEDGE RESECTION OF RUL AND RLL NODULES 2016 Relevant Physical Exam: NOT IN ANY DISTRESS. Cardiorespiratory Assessment: RRR, CTA
--- NOTE | 2017-06-03 08:33 | PDPROPOC ---
Sedation Plan of Care Sedation Plan of Care: vital signs stable, mental status noted, patient educated of risks, benefits, alternatives, patient can tolerate sedation ASA Classification: ASA 2 Planned drugs: fentanyl, midazolam Mallampati Score: Class 2 Mallampati Reference Image: Patient passed 3-3-2 rule?: Yes
[2017-06-03 08:34] LABS: INR 1.02 (0.83-1.16); PROTIME(PATIENT) 13.6 SEC (12.0-15.0)
--- NOTE | 2017-06-03 09:57 | PDRADPN ---
Radiology Procedure Note Date of Procedure: 06/03/17 Radiologist: Maritza Torres Anesthesia: IV Sedation Pre-op Diagnosis: lung nodules Post-op Diagnosis: same Indication: h/o melanoma. r/o mets Procedure: RLL CT guided lung biopsy Finding(s): adequate sample obtained. Inf/Abcess present in the surg proc area at time of surgery?: No Complications: No ptx immediately.
[2017-06-03 13:30] VITALS: BP 103/59
== END | disposition home or self-care (01) ==
LOC: FIMAGING 06:44
PROVIDERS: ATTEND Internal Medicine Hematology & Oncology
PROC: 0BBF3ZX Excision of Right Lower Lung Lobe, Percutaneous Approach, Diagnostic (ICD-10-PCS; principal; 2017-06-03 10:12)
DX: C78.01 Secondary malignant neoplasm of right lung (principal); C43.59 Malignant melanoma of other part of trunk; E78.00 Pure hypercholesterolemia, unspecified; E03.9 Hypothyroidism, unspecified; J44.9 Chronic obstructive pulmonary disease, unspecified
CPT/HCPCS: J2250; J3010

== ENCOUNTER → 2017-07-11 | Outpatient (CLI) | payer BC | LOC: BMCIMAGING 15:02 | PROVIDERS: ATTEND Internal Medicine Endocrinology, Diabetes & Metabolism | DX: Z13.820 Encounter for screening for osteoporosis (principal); M85.89 Other specified disorders of bone density and structure, multiple sites; E29.1 Testicular hypofunction ==